=== PATIENT | female | born 1975 | race Hispanic/Latino ===

== ENCOUNTER 2018-04-07 17:37 | Inpatient (IN) | payer MEDICARE ==
[~2018-04-07] VITALS: Ht 149.9 cm; Wt 38.1 kg
[2018-04-07] MEDS ORDERED: LORAZEPAM 2 MG/ML 1 ML VIAL ONE (17:50)
[2018-04-07 18:09] LABS: BASOPHILS % (AUTO) 0.5 % (0.0-5.0); EOSINOPHILS % (AUTO) 1.8 % (0.0-8.0); HEMATOCRIT 39.1 % (36-48); LYMPHOCYTES % (AUTO) 18.2 % (21.0-51.0); MEAN CORPUSCULAR HEMOGLOBIN 28.6 pg (27.0-33.0); MEAN CORPUSCULAR HGB CONC 33.2 g/dL (32.0-36.0); MEAN CORPUSCULAR VOLUME 86.4 fL (79-99); MONOCYTES % (AUTO) 13.1 % (3.0-13.0); NEUTROPHILS % (AUTO) 66.4 % (40.0-77.0); NUCLEATED RED BLOOD CELLS 0.1 % (0.0-0.19); PLATELET COUNT (AUTO) 145 K/uL (130-400); RED BLOOD CELL COUNT(AUTO) 4.52 MIL/uL (4.00-5.50); RED CELL DISTRIBUTION WIDTH 14.4 % (11.0-15.5)
[2018-04-07 18:38] LABS: CREATININE 0.9 mg/dL (0.5-1.5); POTASSIUM 4.9 mmol/L (3.5-5.1)
[2018-04-07 18:42] LABS: ALBUMIN 3.4 g/dL (3.5-5.0); BILIRUBIN,TOTAL 0.2 mg/dL (0.2-1.0); TOTAL PROTEIN, SERUM 7.6 g/dL (6.0-8.3)
[2018-04-07 18:56] LABS: APPEARANCE,URINE CLEAR (CLEAR); BILIRUBIN,URINE NEGATIVE (NEGATIVE); COLOR,URINE YELLOW (YELLOW); GLUCOSE, URINE (UA) NEGATIVE (NEGATIVE); KETONES,URINE NEGATIVE (NEGATIVE); LEUKOCYTE ESTERASE ,URINE NEGATIVE (NEGATIVE); NITRATE,URINE NEGATIVE (NEGATIVE); OCCULT BLOOD,URINE NEGATIVE (NEGATIVE); PROTEIN,URINE NEGATIVE (NEGATIVE)
[2018-04-07] MEDS ORDERED: DIVALPROEX SODIUM 250 MG TABLET.DR PO ONE (20:40)
[2018-04-07] MEDS ORDERED: ONDANSETRON HCL 4 MG/2 ML VIAL IV PRN (21:00)
[2018-04-07] MEDS ORDERED: MORPHINE SULFATE 2 MG/ML 1ML SYG IV PRN (21:00)
[2018-04-07] MEDS ORDERED: ACETAMINOPHEN 325 MG TAB PO PRN (21:00)
[2018-04-07] MEDS ORDERED: VALPROATE SOD 250 MG/5 ML (PO) PO SCH (21:30)
[2018-04-07] MEDS: FAMOTIDINE/PF 20 MG/2 ML VIAL IV SCH (23:41)
[2018-04-08] VITALS (7 sets, daily range): BP systolic 87–120; BP diastolic 55–74
[2018-04-08] MEDS ORDERED: DIVA125C11 PO (04:55)
[2018-04-08] MEDS ORDERED: LEVE500T77 PO (04:55)
[2018-04-08 04:58] LABS: HEMATOCRIT 33.5 % (36-48); MEAN CORPUSCULAR HEMOGLOBIN 27.5 pg (27.0-33.0); MEAN CORPUSCULAR HGB CONC 32.2 g/dL (32.0-36.0); MEAN CORPUSCULAR VOLUME 85.6 fL (79-99); PLATELET COUNT (AUTO) 113 K/uL (130-400); RED BLOOD CELL COUNT(AUTO) 3.91 MIL/uL (4.00-5.50); RED CELL DISTRIBUTION WIDTH 14.2 % (11.0-15.5); WHITE BLOOD COUNT (AUTO) 3.8 K/uL (4.8-10.8)
[2018-04-08 05:13] LABS: CREATININE 0.7 mg/dL (0.5-1.5); POTASSIUM 3.6 mmol/L (3.5-5.1)
[2018-04-08] MEDS ORDERED: DIPH25TA51 PO (08:40)
[2018-04-08] MEDS ORDERED: ACET-66 PO (08:40)
[2018-04-08] MEDS ORDERED: CHOL500050 PO (08:40)
[2018-04-08] MEDS ORDERED: PIMO1TAB2 PO (08:40)
[2018-04-08] MEDS ORDERED: DOCU-116 PO (08:40)
[2018-04-08] MEDS ORDERED: DIPHENHYDRAMINE HCL 25 MG CAPSULE PO PRN (08:45)
[2018-04-08] MEDS ORDERED: VALPROATE SOD 250 MG/5 ML (PO) PO SCH (09:00)
[2018-04-08] MEDS ORDERED: ERGOCALCIFEROL (VITAMIN D2) 50,000 UNIT CAPSULE PO SCH (09:00)
[2018-04-08] MEDS ORDERED: DOCUSATE SODIUM 100 MG CAP PO PRN (09:00)
[2018-04-08] MEDS ORDERED: DIVALPROEX SODIUM 250 MG TABLET.DR PO SCH ×2 (09:00→11:00)
[2018-04-08] MEDS: PIMOZIDE PO SCH ×2 (09:00→21:00)
[2018-04-08] MEDS ORDERED: LEVETIRACETAM 500 MG TABLET PO SCH (09:00)
[2018-04-08] MEDS ORDERED: ACETAMINOPHEN EXTRA STRENGTH 500 MG TABLET PO PRN (09:00)
[2018-04-08] MEDS: FAMOTIDINE/PF 20 MG/2 ML VIAL IV SCH ×2 (09:31→21:02)
[2018-04-08] MEDS ORDERED: LEVETIRACETAM 1,500 MG in SODIUM CHLORIDE 0.9% 100 ML IV SCH (11:00)
[2018-04-08] MEDS ORDERED: COMPOUND IV MISC 1 EACH IVSOLN MISC PRN (11:15)
[2018-04-08] MEDS: LEVETIRACETAM 1,500MG @ 400 MLS/HR(100ml) IV SCH ×4 (11:58→21:02)
[2018-04-08] MEDS: VALPROIC ACID (AS SODIUM SALT) 500 MG in SODIUM CHLORIDE 0.9% 100 ML IV SCH ×2 (11:58→22:52)
[2018-04-08] MEDS: DEXTROSE 5 % AND 0.9 % NACL 1,000 ML IV SCH (12:14)
[2018-04-09 03:00] VITALS: BP 148/72
[2018-04-09 05:20] LABS: MEAN CORPUSCULAR HEMOGLOBIN 28.5 pg (27.0-33.0); MEAN CORPUSCULAR HGB CONC 32.6 g/dL (32.0-36.0); MEAN CORPUSCULAR VOLUME 87.4 fL (79-99); PLATELET COUNT (AUTO) 112 K/uL (130-400); RED BLOOD CELL COUNT(AUTO) 4.01 MIL/uL (4.00-5.50); RED CELL DISTRIBUTION WIDTH 14.6 % (11.0-15.5); WHITE BLOOD COUNT (AUTO) 5.1 K/uL (4.8-10.8)
[2018-04-09 05:31] LABS: CREATININE 0.7 mg/dL (0.5-1.5); POTASSIUM 3.7 mmol/L (3.5-5.1)
[2018-04-09] MEDS: PIMOZIDE PO SCH ×2 (09:00→21:00)
[2018-04-09 09:20] VITALS: BP 99/63
[2018-04-09] MEDS: FAMOTIDINE/PF 20 MG/2 ML VIAL IV SCH ×2 (10:18→20:54)
[2018-04-09] MEDS: LEVETIRACETAM 1,500MG @ 400 MLS/HR(100ml) IV SCH ×4 (10:18→20:54)
[2018-04-09] MEDS: VALPROIC ACID (AS SODIUM SALT) 500 MG in SODIUM CHLORIDE 0.9% 100 ML IV SCH (11:21)
[2018-04-09 12:22] VITALS: BP 96/67
[2018-04-09] MEDS: CEFTRIAXONE SODIUM 500 MG VIAL IV SCH (13:19)
[2018-04-09] MEDS: DEXTROSE 5 % AND 0.9 % NACL 1,000 ML IV SCH (13:19)
[2018-04-09] MEDS ORDERED: HALOPERIDOL LACTATE 5 MG/ML VIAL IM SCH (16:45)
[2018-04-09] MEDS ORDERED: LACTULOSE 20 GM/30 ML UDCUP PO PRN (16:45)
[2018-04-09] MEDS ORDERED: DiphenhydrAMINE HCL 50 MG/ML VIAL IM SCH (16:45)
[2018-04-09 16:57] VITALS: BP 110/66
[2018-04-09 19:00] VITALS: BP 127/76
[2018-04-10] MEDS: VALPROIC ACID (AS SODIUM SALT) 500 MG in SODIUM CHLORIDE 0.9% 100 ML IV SCH ×3 (00:01→23:40)
[2018-04-10 01:15] VITALS: BP 129/86
[2018-04-10 04:00] VITALS: BP 129/69
[2018-04-10 06:15] LABS: HEMATOCRIT 31.7 % (36-48); MEAN CORPUSCULAR HEMOGLOBIN 27.9 pg (27.0-33.0); MEAN CORPUSCULAR VOLUME 84.7 fL (79-99); NUCLEATED RED BLOOD CELLS 0.1 % (0.0-0.19); PLATELET COUNT (AUTO) 118 K/uL (130-400); RED BLOOD CELL COUNT(AUTO) 3.74 MIL/uL (4.00-5.50); RED CELL DISTRIBUTION WIDTH 14.3 % (11.0-15.5); WHITE BLOOD COUNT (AUTO) 4.9 K/uL (4.8-10.8)
[2018-04-10 06:38] LABS: CREATININE 0.7 mg/dL (0.5-1.5); POTASSIUM 3.4 mmol/L (3.5-5.1)
[2018-04-10 08:53] VITALS: BP 88/55
[2018-04-10] MEDS: PIMOZIDE PO SCH ×2 (09:00→21:00)
[2018-04-10] MEDS: FAMOTIDINE/PF 20 MG/2 ML VIAL IV SCH ×2 (09:01→21:57)
[2018-04-10] MEDS: LEVETIRACETAM 1,500MG @ 400 MLS/HR(100ml) IV SCH ×4 (09:02→21:57)
[2018-04-10] MEDS: DEXTROSE 5 % AND 0.9 % NACL 1,000 ML IV SCH (12:00)
[2018-04-10] MEDS: CEFTRIAXONE SODIUM 500 MG VIAL IV SCH (12:00)
[2018-04-10 16:15] VITALS: BP 102/68
[2018-04-10 19:00] VITALS: BP 128/76
[2018-04-10] MEDS ORDERED: DEXTROSE 5%-WATER 1,000 ML IV SCH (20:30)
[2018-04-10 23:00] VITALS: BP 105/67
[2018-04-11 01:20] LABS: CHLORIDE,URINE RANDOM 217 mmol/L (110-250); POTASSIUM,URINE RANDOM 22 mmol/L (25-125); SODIUM,URINE RANDOM 183 mmol/l (40-220)
[2018-04-11 03:00] VITALS: BP 99/65
[2018-04-11 07:14] LABS: CREATININE 0.6 mg/dL (0.5-1.5); POTASSIUM 3.4 mmol/L (3.5-5.1)
[2018-04-11 08:00] VITALS: BP 99/64
[2018-04-11] MEDS: FAMOTIDINE/PF 20 MG/2 ML VIAL IV SCH (08:55)
[2018-04-11] MEDS: PIMOZIDE PO SCH (09:00)
[2018-04-11] MEDS: LEVETIRACETAM 1,500MG @ 400 MLS/HR(100ml) IV SCH ×2 (10:18)
[2018-04-11 12:00] VITALS: BP 113/76
[2018-04-11] MEDS: CEFTRIAXONE SODIUM 500 MG VIAL IV SCH (14:10)
[2018-04-11] MEDS ORDERED: DIVA125C11 PO (14:35)
[2018-04-11 16:26] VITALS: BP 95/72
[2018-04-11] MEDS ORDERED: LEVETIRACETAM 500 MG TABLET PO SCH (21:00)
[2018-04-11] MEDS ORDERED: VALPROATE SOD 250 MG/5 ML (PO) PO SCH (21:00)
== END 2018-04-11 18:17 | disposition home or self-care (01) | DRG 101 ==
LOC: EDH 17:37 → EDHIP 20:56 → 3CH 22:43
PROVIDERS: ADMIT Internal Medicine; ATTEND Internal Medicine
DX: G40.219 Localization-related (focal) (partial) symptomatic epilepsy and epileptic syndromes with complex partial seizures, intractable, without status epilepticus (principal); E44.1 Mild protein-calorie malnutrition; E87.0 Hyperosmolality and hypernatremia; Z68.1 Body mass index [BMI] 19.9 or less, adult; M41.20 Other idiopathic scoliosis, site unspecified; F95.9 Tic disorder, unspecified; G80.9 Cerebral palsy, unspecified; E86.9 Volume depletion, unspecified; R62.50 Unspecified lack of expected normal physiological development in childhood
CPT/HCPCS: 36415; 70450; 80048; 80051; 80053; 80164; 80177; 81003; 83930; 83935; 85025; 85027; 87040; 87088; 87804; 92610; A4218; A4344; G0378; J0696; J1200; J1630; J1953; J2060; J3490; J7042; J7070

== ENCOUNTER → 2019-01-11 | Outpatient (CLI) | payer MEDICARE ==
[~2019-01-11] MED LIST: ACET-66 PO; CHOL500050 PO; DIPH25TA51 PO; DIVA125C11 PO; DOCU-116 PO; LEVE500T98 PO; PIMO1TAB2 PO
== END | disposition home or self-care (01) ==
LOC: RAH 09:33
PROVIDERS: ATTEND Family Medicine
DX: Z12.31 Encounter for screening mammogram for malignant neoplasm of breast (principal)
CPT/HCPCS: 77067

== ENCOUNTER 2024-08-01 16:10 | Emergency (ER) | payer MEDICARE ==
[~2024-08-01] VITALS: Ht 157.5 cm; Wt 49.9 kg
[~2024-08-01 16:10] MED LIST changes: +LEVE-21 PO; -LEVE500T98 PO
--- NOTE | 2024-08-01 16:20 | NUR ---
PT JUST PLACED IN MY ED BED 10. PER MEDICS, PT WAS JUST DISCHARGED TO HOME WHEN SHE STARTED W/HER SHAKES AND THE FAMILY CALLED 911 AND FAMILY SENT [place] [facility] [place] [facility] JUST BEFORE THEY CALLED 911
--- NOTE | 2024-08-01 16:25 | ERN ---
ED Note History of Present Illness Stated Complaint: TRMEORS Chief Complaint: Tremors Time Seen by MD: 16:15 Dictation: PATIENT IS A 49-YEAR-OLD FEMALE NONVERBAL COMING IN WITH [facility] EMS WITH COMPLAINTS OF TREMORS ACCORDING TO EMS PERSONNEL. SHE APPEARS VERY DEBILITATED WITH CONTRACTURES TO LOWER EXTREMITIES HAS A HISTORY OF SEIZURES AND IS ON TEGRETOL AND KEPPRA. NO FEVER NO CHILLS NO NAUSEA VOMITING. PER EMS STAFF, PATIENT WAS JUST JUST CHARGE SEVERAL HOURS AGO FROM [facility] FOR THE SAME COMPLAINTS. NO FAMILY AT BEDSIDE PATIENT IS UNABLE TO ANSWER ANY QUESTIONS. PATIENT HAS A DIVERGENT GAZE TO THE LEFT NO ACTIVE SEIZURE AND SEEN AT THIS TIME. Allergies: Coded Allergies: No Known Drug Allergies (Verified Allergy, Unknown, 04/07/18) Home Meds Active Scripts Divalproex Sodium (Divalproex Sodium) 125 Mg Cap.sprink, 500 MG PO BID for 15 Days, CAP.SPRINK Prov:JESSICA OLGUIN MAIL SORTING SUPERVISOR 04/11/18 Reported Medications Docusate Sodium (Colace) 100 Mg Capsule, 100 MG PO QDP PRN for CONSTIPATION, CAP 04/08/18 Diphenhydramine HCl (Benadryl Allergy) 25 Mg Tablet, 25 MG PO Q4HPRN PRN for ITCHING, TAB 04/08/18 Acetaminophen (Acetaminophen) 500 Mg Tablet, 500 MG PO Q4HPRN PRN for FEVER/PAIN, TAB 04/08/18 Cholecalciferol (Vitamin D3) (Vitamin D) 50,000 Unit Capsule, 79433 UNIT PO QWEEK, CAP 04/08/18 Pimozide (Pimozide) 1 Mg Tablet, 0.5 MG PO BID, TAB 04/08/18 Levetiracetam (Levetiracetam) 500 Mg Tab.er.24h, 1500 MG PO BID, TAB 04/08/18 Past Medical History RN Note Reviewed/Agreed w/PFSH: Yes Review of System Dictation CONSTITUTIONAL: NEGATIVE EXCEPT FOR HPI HEAD/FACE: NEGATIVE EXCEPT FOR HPI EENT: NEGATIVE EXCEPT FOR HPI RESPIRATORY: NEGATIVE EXCEPT FOR HPI GASTROINTESTINAL/ABDOMINAL: NEGATIVE EXCEPT FOR HPI GENITOURINARY: NEGATIVE EXCEPT FOR HPI MUSCULOSKELETAL: NEGATIVE EXCEPT FOR HPI INTEGUMENTARY: NEGATIVE EXCEPT FOR HPI NEUROLOGICAL/PSYCH: NEGATIVE EXCEPT FOR HPI QUESTIONABLE SEIZURE HEMATOLOGIC/LYMPHATIC: NEGATIVE EXCEPT FOR HPI ALL SYSTEMS NEGATIVE, EXCEPT NOTED ABOVE. 13 POINT REVIEW OF SYSTEMS ASSESSED AND ALL NEGATIVE EXCEPT FOR ABOVE. Initial Vital Sign VS Vital Signs Date Time Temp Pulse Resp B/P (MAP) Pulse Ox O2 Delivery O2 Flow Rate FiO2 08/01/24 16:16 98.4 114 20 113/74 97 Room Air 0 Physical Exam Dictation VITAL SIGNS REVIEWED GENERAL APPEARANCE: ALERT, EYES ARE OPEN WITH A DIVERGENT GAZE TO THE LEFT. PATIENT IS NONVERBAL AND NOT ANSWERING ANY QUESTIONS. APPEARS VERY WEAK DEBILITATED HEAD AND FACE: NON-TRAUMATIC. EYES: PERRL, PINK CONJUNCTIVAS, EYELID NO TRAUMA, ANTERIOR CHAMBER WITH ARCUS SENILIS. EARS: PINNAS INTACT AND NO SIGNS OF TRAUMA OR ERYTHEMA EAR CANALS CLEAR AND NO DISCHARGE TM NO ERYTHEMA NOSE: NO DISCHARGE, NO BLEEDING. OROPHARYNX: MOUTH NORMAL, TONGUE PINK, PHARYNX CLEAR,NO ERYTHEMA, TONSILS NO EXUDATES, NO ABSCESSES NOTED, MUCOUS MEMBRANE MOIST NECK: SUPPLE, NON-TENDER, NO THYROMEGALY, NO MASSES, NO JVD, NO BRUITS BREAST:DEFERRED CHEST:NO TENDERNESS, NO CREPITUS, NO PARADOXICAL MOVEMENT, NO RETRACTIONS LUNGS:CLEAR, WELL-VENTILATED, SYMMETRIC, NO RALES, NO WHEEZING, NO RHONCHI, NO STRIDOR, GOOD BREATH SOUNDS BILATERALLY HEART: REGULAR RATE, REGULAR RHYTHM, NO MURMUR, NO GALLOPS VASCULAR: NO PERIPHERAL EDEMA, ABDOMEN: SOFT, POSITIVE BOWEL SOUNDS, NONDISTENDED, NO GUARDING, NONTENDER, NO REBOUND, NO MASSES NO HEPATOMEGALY, NO SPLENOMEGALY, NO DUMONT'S SIGN, NO HERNIAS. RECTAL: DEFERRED GENITAL: DEFERRED NEUROLOGICAL: NONVERBAL AND NOT ANSWERING ANY QUESTIONS. NO FAMILY AT BEDSIDE MUSCULOSKELETAL: NECK NONTENDER, F CONTRACTURES NOTED TO BILATERAL LOWER EXTREMITIES EXTREMITIES: NONTENDER, FULL RANGE OF MOTION SKIN: COLOR PINK, DRY, NO TURGOR, NO RASH, NO LACERATIONS, NO ABRASIONS, NO CONTUSIONS. LYMPHATIC: DEFERRED Results (Laboratory/Radiology) Laboratory/Radiology Laboratory Tests Test 08/01/24 16:58 08/01/24 18:58 White Blood Count 11.4 K/uL (4.8-10.8) H Red Blood Count 3.90 MIL/uL (4.00-5.50) L Hemoglobin 12.0 g/dL (12.0-16.0) Hematocrit 36.4 % (36-48) Mean Corpuscular Volume 93.3 fL (79-99) Mean Corpuscular Hemoglobin 30.8 pg (27.0-33.0) Mean Corpuscular Hemoglobin Concent 33.0 g/dL (32.0-36.0) Red Cell Distribution Width 14.0 % (11.0-15.5) Platelet Count 233 K/uL (130-400) Mean Platelet Volume 9.3 fL (7.5-10.5) Immature Granulocyte % (Auto) 0.4 % (0-1) Neutrophils (%) (Auto) 74.8 % (40.0-77.0) Lymphocytes (%) (Auto) 14.5 % (21.0-51.0) L Monocytes (%) (Auto) 10.1 % (3.0-13.0) Eosinophils (%) (Auto) 0.0 % (0.0-8.0) Basophils (%) (Auto) 0.2 % (0.0-5.0) Neutrophils # (Auto) 8.6 K/uL (1.8-7.7) H Lymphocytes # (Auto) 1.7 K/uL (1.0-4.8) Monocytes # (Auto) 1.2 K/uL (0.1-1.0) H Eosinophils # (Auto) 0.00 K/uL (0.00-0.70) Basophils # (Auto) 0.02 K/uL (0.00-0.20) Absolute Immature Granulocyte (auto 0.05 K/uL (0-1) Nucleated Red Blood Cells 0.0 % (0.0-0.19) Sodium Level 134 mmol/L (136-145) L Potassium Level 4.0 mmol/L (3.5-5.1) Chloride Level 103 mmol/L (101-111) Carbon Dioxide Level 23 mmol/L (21-32) Blood Urea Nitrogen 12 mg/dL (7-18) Creatinine 0.6 mg/dL (0.5-1.0) Glomerular Filtration Rate Calc 111 mL/min (>90) Random Glucose 102 mg/dL (70-105) Lactic Acid Level 1.8 mmol/L (0.8-2.5) Total Calcium 8.7 mg/dL (8.5-10.1) Carbamazepine (Tegretol) Level < 0.5 mcg/mL (4.0-12.0) L Urine Color COLORLESS (YELLOW) Urine Appearance CLEAR (CLEAR) Urine pH 7.0 (5.0-8.0) Urine Specific [place] 1.007 (1.001-1.031) Urine Protein NEGATIVE mg/dL (NEGATIVE) Urine Glucose (UA) NEGATIVE mg/dL (NEGATIVE) Urine Ketones 10 mg/dL (NEGATIVE) H Urine Occult Blood NEGATIVE (NEGATIVE) Urine Nitrate NEGATIVE (NEGATIVE) Urine Bilirubin NEGATIVE mg/dL (NEGATIVE) Urine Urobilinogen 0.2 mg/dL (0.2-1.0) Urine Leukocyte Esterase NEGATIVE Amelia/uL Urine HCG, Qualitative NEGATIVE (NEGATIVE) CHEST 1VW HISTORY: Shortness of breath COMPARISON: None FINDINGS: A frontal projection of the chest was obtained. No acute pulmonary infiltrates is seen. The heart is borderline enlarged. Postoperative changes are seen of the thoracolumbar spine. Poor inspiratory effort is seen. No evidence of aortic calcification is seen. IMPRESSION: 1. No acute pulmonary infiltrate is seen. Labs Reviewed?: Yes ED Course ED Course Orders Procedure Category Date Status Time Carbamazepine LAB 08/01/24 Complete (Tegretol) 16:21 Levetiracetam 500 PHA 08/01/24 Complete Mg/5 Ml Sd V (Keppra 5 16:21 Nurse Driven Alcocer ANTHONY 08/01/24 In Process Removal Pro 16:21 Blood Cult VIDA 08/01/24 Logged 16:21 Lactic Acid LAB 08/01/24 Complete 16:21 Cbc With Differential LAB 08/01/24 Complete 16:21 ,Urine Test LAB 08/01/24 Complete 16:21 Urinalysis Profile LAB 08/01/24 Complete 16:21 0.9%Nacl 1000ml (Ns PHA 08/01/24 Complete 1000ml) 16:30 Chest 1vw RAD 08/01/24 Resulted 16:21 Basic Metabolic Panel LAB 08/01/24 Complete 16:21 Carbamazepine 200 Mg PHA 08/01/24 Complete (Carbamazepine 200 19:00 Current Medications Medications (Trade) Dose Ordered Sig/Kush Route PRN Reason Start Time Stop Time Status Last Admin Dose Admin Carbamazepine (carBAMazepine 200 mg tablet) 400 mg ONCE ONCE PO 08/01/24 19:00 08/01/24 19:04 DC Levetiracetam 1000 mg/Sodium Chloride 100 ml @ 400 mls/hr ONCE STAT IV 08/01/24 16:21 08/01/24 16:35 DC 08/01/24 17:12 Sodium Chloride 1,000 ml @ 0 mls/hr ONCE ONCE IV 08/01/24 16:30 08/01/24 16:31 DC 08/01/24 17:11 Vital Signs Date Time Temp Pulse Resp B/P (MAP) Pulse Ox O2 Delivery O2 Flow Rate FiO2 08/01/24 16:16 98.4 114 20 113/74 97 Room Air 0 1904/SPOKE WITH NEHA HE WAS THE [employer] WERE PATIENT RESIDES. HE WAS MADE AWARE THE TEGRETOL LEVEL WAS LESS THAN FIVE, HE STATES THE RECORD SHOW SHE HAD BEEN GETTING IT TWICE A DAY AND GOT IT YESTERDAY. 1957/SPOKE WITH NEHA FROM THE [facility] AND HE IS AWARE THE PATIENT WILL BE DISCHARGED AFTER BEING LOADED WITH TEGRETOL WELL THE KEPPRA. HE WAS ABLE TO VERIFY WITH THE NURSING STAFF THAT SHE HAS GOT BOTH HER SEIZURE MEDICATIONS AT THE [facility] NOW AND WE WILL BE COMPLIANT. ALL QUESTIONS AND Medical Decision Making MDM MDM: DIFFERENTIAL DIAGNOSIS: SEIZURE/SUBTHERAPEUTI ANTICONVULSANTS, UTI/ANEMIA/ELECTROLYTE IMBALANCE RATIONALE: TESTS CONSIDERED AND ORDERED SECONDARY TO SHARED DECISION MAKING INCLUDE:/DEHYDRATION LABS/CHEST X-RAY PREVIOUS OUTSIDE RECORDS REVIEWED: OLD ER VISITS. RISK OF COMPLICATION AND/OR MORBIDITY OR MORTALITY OF PATIENT MANAGEMENT: NONE MEDICATIONS-PER MEDICATION RECONCILIATION NEED FOR HOSPITALIZATION: PATIENT DOES NOT MEET CRITERIA FOR HOSPITALIZATION. DOES NOT BE MET NEED FOR EMERGENCY MAJOR/MINOR SURGERY: NO THERE ARE NO SOCIAL CONCERNS WITH THIS PATIENT. PRESCRIPTION DRUG MANAGEMENT PRESCRIPTIONS WILL INCLUDE SYMPTOMATIC CARE PATIENT'S PRIOR EXTERNAL MEDICAL RECORDS FROM OTHER ER VISITS WERE REVIEWED BY ME INDICATED. PRIOR TESTING AND RESULTS FROM PREVIOUS VISITS WERE REVIEWED. PRIOR TESTS WERE TAKEN INTO ACCOUNT WITH MEDICAL DECISION MAKING AND RESOURCE UTILIZATION, INDEPENDENT HISTORIAN/HISTORIANS WERE USED TO OBTAIN COMPLETE MEDICAL HISTORY. I INDEPENDENTLY INTERPRETED THE TEST THAT WERE PERFORMED, RESULTS WERE REVIEWED BY ME AND CONSIDERED FINDINGS ON RADIOLOGY IF ORDERED. MEDICAL MANAGEMENT AND EXAMINATION INTERPRETATION DISCUSSIONS WERE HAD BY ME WI TH OTHER QUALIFIED HEALTHCARE PROFESSIONALS INDICATED FOR THE PATIENT'S CARE. DX & DISP Disposition: Discharge Departure Impression: Primary Impression: Seizure secondary to subtherapeutic anticonvulsant medication Additional Impressions: Breakthrough seizure, Hyponatremia, Dehydration Condition: Stable Additional Instructions: FOLLOW-UP WITH PRIMARY CARE PROVIDER IN 1 TO 2 DAYS. TAKE MEDICATIONS DIRECTED HERE IN THE EMERGENCY ROOM. OKAY TO CONTINUE HOME MEDICATIONS UNLESS OTHERWISE DISCUSSED DURING YOUR VISIT IN THE EMERGENCY ROOM TODAY. RETURN TO YOUR NEAREST EMERGENCY ROOM IF SYMPTOMS WORSEN OR IF THERE IS NO IMPROVEMENT. CALL 911 IF YOU NEED IMMEDIATE ASSISTANCE. TAKE TYLENOL OR MOTRIN [id number] NEEDED AND IF NO CONTRAINDICATIONS ARE PRESENT. INCREASE ORAL HYDRATION. A WOUND CULTURE OR URINE CULTURE WAS ORDERED HERE IN THE E MERGENCY ROOM DEPARTMENT PLEASE FOLLOW-UP WITH PRIMARY CARE PROVIDER AND ADVISE THEM TO GET REPEAT PORTS FROM OUR FACILITY. IF YOU HAD ANY BEKAH WRAP/SPLINTS THAT WERE APPLIED HERE, PLEASE DO NOT REMOVE THEM UNTIL YOU SEE YOUR PRIMARY CARE OR SPECIALTY. RESUME ALL MEDICATIONS AND TREATMENTS AT THE [facility]. TAKE SEIZURE MEDICATIONS DIRECTED FROM NEUROLOGIST. FOLLOW UP WITH PATIENT'S DOCTOR IN THE NEXT SEVERAL DAYS NEEDED. Referrals: SHENA SEPULVEDA MD (PCP) Time of Disposition: 20:00 I have reviewed the case, and I agree with, Diagnosis and Plan PAM CAMILO NP Aug 01, 2024 16:25
--- NOTE | 2024-08-01 16:55 | HMCIMG ---
CHEST 1VW HISTORY: Shortness of breath COMPARISON: None FINDINGS: A frontal projection of the chest was obtained. No acute pulmonary infiltrates is seen. The heart is borderline enlarged. Postoperative changes are seen of the thoracolumbar spine. Poor inspiratory effort is seen. No evidence of aortic calcification is seen. IMPRESSION: 1. No acute pulmonary infiltrate is seen.
[2024-08-01 17:07] LABS: BASOPHILS # (AUTO) 0.02 K/uL (0.00-0.20); BASOPHILS % (AUTO) 0.2 % (0.0-5.0); HEMATOCRIT 36.4 % (36-48); IMMATURE GRANULOCYTE ABSOLUTE 0.05 K/uL (0-1); LYMPHOCYTES # (AUTO) 1.7 K/uL (1.0-4.8); LYMPHOCYTES % (AUTO) 14.5 % (21.0-51.0); MEAN CORPUSCULAR HEMOGLOBIN 30.8 pg (27.0-33.0); MEAN CORPUSCULAR VOLUME 93.3 fL (79-99); MONOCYTES # (AUTO) 1.2 K/uL (0.1-1.0); MONOCYTES % (AUTO) 10.1 % (3.0-13.0); NEUTROPHILS # (AUTO) 8.6 K/uL (1.8-7.7); NEUTROPHILS % (AUTO) 74.8 % (40.0-77.0); PLATELET COUNT (AUTO) 233 K/uL (130-400); WHITE BLOOD COUNT (AUTO) 11.4 K/uL (4.8-10.8)
[2024-08-01] MEDS: 0.9%NACL 1000ML 1,000 ML IV ONE (17:11)
[2024-08-01] MEDS: leveTIRACEtam 500 MG/5 ML SD V 1,000 MG in 0.9%NACL 100ML 100 ML IV STA (17:12)
[2024-08-01 17:28] LABS: CARBAMAZEPINE (TEGRETOL) < 0.5 mcg/mL (4.0-12.0); CARBON DIOXIDE 23 mmol/L (21-32); CHLORIDE 103 mmol/L (101-111); CREATININE 0.6 mg/dL (0.5-1.0); GLOMERULAR FILTR. RATE CALC 111 mL/min (>90); GLUCOSE,RANDOM 102 mg/dL (70-105); SODIUM SERUM 134 mmol/L (136-145); UREA NITROGEN, BLOOD 12 mg/dL (7-18)
--- NOTE | 2024-08-01 17:41 | NUR ---
FAILED SHEPHERD ATTEMPT: KONSTANTIN REYES WAS UNABLE TO ACCESS PTS URETHRA FOR INSERTION OF A SHEPHERD CATH
--- NOTE | 2024-08-01 19:10 | NUR ---
REPORT ENDORSED TO LESTER TOBAR
[2024-08-01 19:31] LABS: APPEARANCE,URINE CLEAR (CLEAR); BILIRUBIN,URINE NEGATIVE (NEGATIVE); COLOR,URINE COLORLESS (YELLOW); GLUCOSE, URINE (UA) NEGATIVE (NEGATIVE); KETONES,URINE 10 mg/dL (NEGATIVE); LEUKOCYTE ESTERASE ,URINE NEGATIVE Leu/uL (NEGATIVE); NITRATE,URINE NEGATIVE (NEGATIVE); OCCULT BLOOD,URINE NEGATIVE (NEGATIVE); PROTEIN,URINE NEGATIVE (NEGATIVE); UROBILINOGEN,URINE 0.2 mg/dL (0.2-1.0)
[2024-08-01 19:35] LABS: HCG,QUALITATIVE URINE NEGATIVE (NEGATIVE)
[2024-08-01 19:38] LABS: ADD UA MICROSCOPIC NO
[2024-08-01] MEDS: carBAMazepine 200 MG TABLET PO ONE (19:59)
[2024-08-01 20:07] VITALS: BP 128/85; PULSE 100; RESP 20; TEMP 98.4; O2SAT 98
--- NOTE | 2024-08-01 20:23 | NUR ---
SHEPHERD CATHETER REMOVED INTACT, PATIENT TOLERTED WELL
== END 2024-08-01 21:01 | disposition home or self-care (01) ==
LOC: EDH 16:10
DX: G40.909 Epilepsy, unspecified, not intractable, without status epilepticus (principal); E86.0 Dehydration; E87.1 Hypo-osmolality and hyponatremia; Z79.899 Other long term (current) drug therapy
CPT/HCPCS: 99284; 96365; 96366; 71045; 80156; 80048; 85025; 87040 ×2; 83605; 81003; 81025; 36415; J1953; J7030